=== PATIENT | female | born 1950 | race Caucasian/White ===

== ENCOUNTER → 2024-03-28 12:40 | Outpatient (REF) | payer OTHER, SELFPAY | LOC: RAD 12:40 | PROVIDERS: ATTENDING PHYSICIAN Internal Medicine Rheumatology; FAMILY PHYSICIAN Internal Medicine | DX: M81.0 Age-related osteoporosis without current pathological fracture (principal); M85.89 Other specified disorders of bone density and structure, multiple sites; Z13.820 Encounter for screening for osteoporosis | CPT/HCPCS: 77080; 77081 ==

== ENCOUNTER → 2024-05-30 13:14 | Outpatient (REF) | payer OTHER, SELFPAY | LOC: WDC 13:14 | PROVIDERS: ATTENDING PHYSICIAN Internal Medicine Rheumatology; FAMILY PHYSICIAN Internal Medicine | DX: Z12.31 Encounter for screening mammogram for malignant neoplasm of breast (principal); M05.9 Rheumatoid arthritis with rheumatoid factor, unspecified; M15.9 Polyosteoarthritis, unspecified | CPT/HCPCS: 73120; 73630; 77063; 77067 ==

== ENCOUNTER 2025-02-06 07:21 | Inpatient (IN) | payer OTHER, SELFPAY ==
[2025-02-06] VITALS (22 sets, daily range): BP systolic 129–161; BP diastolic 69–94; PULSE 77–84; BMI 16.8; BMI 17.2
[2025-02-06 04:08] LABS: % Basophils 0.5 % (0-2); % Eosinophils 1.3 % (0-6); % Immature Granulocytes 0.7 % (0-0.5); % Lymphocytes 10.7 % (20.5-51.1); % Monocytes 8.1 % (1.7-9.3); % Neutrophils 78.7 % (42.2-75.2); Absolute Basophils 0.1 10^3/uL (0-0.2); Absolute Eosinophils 0.2 10^3/uL (0-0.7); Absolute Immature Granulocytes 0.1 10^3/uL (0-0.05); Absolute Lymphocytes 1.3 10^3/uL (1.2-3.4); Absolute Neutrophils 9.4 10^3/uL (1.4-6.5); Hematocrit 36.8 % (37.0-47.0); Hemoglobin 12.9 g/dL (12.0-16.0); Mean Corp Hgb Conc. 35.1 g/dL (33.0-37.0); Mean Corpuscular Hgb 31.7 pg (27.0-31.0); Mean Corpuscular Volume 90.4 fL (81.0-99.0); Mean Platelet Volume 9.1 fL (7.4-10.4); Nucleated Red Blood Cells % 0 %; Platelet Count 335 10^3/uL (130-400); Red Blood Cell Count 4.07 10^6/uL (4.20-5.40); Red Cell Dist. Width 13.5 % (11.5-14.5); White Blood Cell Count 11.9 10^3/uL (4.8-10.8)
--- NOTE | 2025-02-06 04:20 | ED.GENMED ---
History of Present Illness
General
Chief Complaint: Post Operative Problem(s)
Source: patient
Exam Limitations: none
Time Seen by Provider: 02/06/25 04:20
Nursing documentation reviewed up to this point in time: agreed with
History of Present Illness
History of Present Illness:
Note:
CHIEF COMPLAINT(S)
Nausea and vomiting
HISTORY OF PRESENT ILLNESS
The patient is a 74-year-old female with a history of htn, hlp, who presents with nausea and vomiting. Symptoms began after undergoing Mohs surgery on Sunday. The patient took a dose of tramadol upon returning home from the procedure, which she
now regrets given her known sensitivity to pain medications. Since then, she has experienced persistent nausea and vomiting, which has prevented her from retaining any food or fluids. She denies abdominal pain, diarrhea, or fevers but has
experienced dizziness and dry heaving. The patients symptoms have not been alleviated by ondansetron, which she took last night. She reports difficulty sleeping and is concerned about dehydration. The patient has known vertigo but states that this
is the first time it has been accompanied by vomiting. She has tried sipping water, but it resulted in vomiting. No chest pain or shortness of breath is noted. The patient is also experiencing headaches since the procedure but has hesitated to take
acetaminophen or ibuprofen due to fear of vomiting again.
ALLERGIES
No known drug allergies.
REVIEW OF SYSTEMS
See HPI.
PHYSICAL EXAM
Nursing notes reviewed and vital signs reviewed.
General: Patient is well appearing and in no acute distress; non-toxic
Skin: Warm and dry, no rashes or lesions
Head: Normocephalic, atraumatic
Eyes: Sclera non-icteric. EOMs intact.
Cardiac: Regular rate and rhythm, no murmur
Peripheral Vascular: No lower extremity swelling or edema
Pulm: Normal respiratory effort, no wheezes, rales, rhonchi
Abdomen: No abdominal tenderness to palpation, no abdominal distention
Neuro: CN II-XII intact, no focal neurologic deficits. Sensation intact. 5 out of 5 strength in bilateral upper and lower extremities
Psychiatric: Appropriate mood and affect.
PLAN
1. Administer intravenous fluids to address dehydration.
2. Provide intravenous antiemetic for nausea.
3. Consider ibuprofen for headache management once nausea is controlled.
4. Monitor the patient closely for improvement in symptoms.
5. Evaluate the need for further imaging if symptoms persist.
DIFFERENTIAL DIAGNOSIS
The Differential Diagnosis includes, in no particular order and is not limited to:
1. Medication reaction to tramadol
2. Vertigo-related nausea
3. Dehydration secondary to vomiting
4. Gastritis
5. Gastroenteritis (unlikely due to absence of diarrhea)
6. Vestibular neuritis
7. Labyrinthitis
8. Bowel obstruction
9. Migraine-induced nausea
10. Post-surgical nausea and anxiety
CHART REVIEW
No discharge summary [facility] to review
Patient had Mohs surgery done by Dr. Coffey
MDM/DISPOSITION
74 y/o female hx of htn, hlp, comes in with nausea and vomiting for the past 3 days. She developed a headache the past day. These symptoms started after taking tramadol for pain after she had mohs surgery on her left forehead 2 days ago. Her sodium
is 123, her serum osmolality is 250, urine osmolality is 642. She will require admission for management of her acute hyponatremia. Reviewed case with ER attending. Reviewed case with hospitalist. Decision was to provide hypertonic saline
considering patient's symptoms and the fact that her sodium is less than 124. Did obtain CT scan of the head which was negative for any acute intracranial pathology. Patient referred for admission
Phy Exam
Physical Exam
Physical Exam:
see hpi
Course
Orders/Labs/Results
Orders:
Orders
02/06/25 03:53
Complete Blood Count/With Diff Urgent
Comprehensive Metabolic Panel Urgent
Serum Osmolality Urgent
Comment: ADDED
02/06/25 04:33
0.9% Sodium Chloride 500 ml [Nss] 500 ml IV BOLUS
Ketorolac [Toradol] 15 mg IV NOW STA
Prochlorperazine [Compazine] 10 mg IV NOW STA
02/06/25 04:36
Add On- LAB Urgent
Tests Added?: serum osmolality
02/06/25 05:04
Osmolality, Random Urine Urgent
Date Specimen was Collected: 02/06/25
Time Specimen was Collected: 05:00
Urinalysis Reflex To Culture Stat
Date Specimen was Collected: 02/06/25
Time Specimen was Collected: 05:00
Urine Microscopic Reflex Cult Stat
02/06/25 05:21
CT Head W/o Iv Contrast Urgent
Comment:
Reason For Exam: headache x3 days
02/06/25 06:37
Add On- LAB Stat
Tests Added?: Urine sodium
02/06/25 07:00
3% Sodium Chloride 250 ml [Sodium Chloride 3%] 250 ml IV ONCE
Flush (0.9% Sodium Chloride) [Flush (Nss)] See Dose Instructions IV PER PROTOCOL
Abnormal Lab Results
02/06/25 02/06/25
03:53 05:04
WBC 11.9 H 10^3/uL
(4.8-10.8)
RBC 4.07 L 10^6/uL
(4.20-5.40)
Hct 36.8 L %
(37.0-47.0)
MCH 31.7 H pg
(27.0-31.0)
Abs Immat Gran (auto) 0.1 H 10^3/uL
(0-0.05)
Absolute Neuts (auto) 9.4 H 10^3/uL
(1.4-6.5)
Absolute Monos (auto) 1.0 H 10^3/uL
(0.1-0.6)
Immature Gran % 0.7 H %
(0-0.5)
Neutrophils % 78.7 H %
(42.2-75.2)
Lymphocytes % 10.7 L %
(20.5-51.1)
Sodium 123 L mmol/L
(135-145)
Chloride 92 L mmol/L
(98-107)
Creatinine 0.5 L mg/dL
(0.6-1.0)
Glucose 108 H mg/dl
(70-99)
Serum Osmolality 250 L mOsm/kg
(275-300)
Urine Ketones 3+ A
(Negative)
Ur Occult Blood Reflex 3+ A
(Negative)
Urine RBC 11-15 A /HPF
(0-2)
Urine Albumin (Reflex) 1+ A
(Neg - Trace)
02/06/25 03:53
02/06/25 03:53
Vital Signs
Initial and Last Documented VS:
Initial Vital Signs
Temp Pulse Resp BP Pulse Ox
98.4 F 72 20 156/86 99
02/06/25 03:20 02/06/25 03:20 02/06/25 03:20 02/06/25 03:20 02/06/25 03:20
Last Documented Vital Signs
Temp Pulse Resp BP Pulse Ox
98.4 F 72 20 151/83 97
02/06/25 03:20 02/06/25 03:20 02/06/25 03:20 02/06/25 05:03 02/06/25 05:30
*Pulse Oximetry
SaO2: 99
Oxygen Mode of Delivery: Room air
*Critical Care Note
Total Time (30-74mins, 75-104mins- exclusive of procedures): Not Applicable
ED Attending Note
-
Portions of this chart may have been created with voice recognition software.� Occasional wrong word or��sound alike� substitutions may have occurred due to the inherent limitations of voice recognition software.
Discharge Plan
Departure
Patient Disposition: Admit
Date of Disposition: 02/06/25
Time of Disposition: 06:24
Admit to: Med/Surg
Presentation/result/management discussed w/ accepting MD/DO: Hospitalist
Patient with high blood pressure during this ER visit?: Yes
Condition: Fair
Discharge Problem:
Acute hyponatremia
Referrals:
Sofia Pedraza MD [Family Provider, Internal Medicine]
Interventions
Interventions:
*Risk Screen - Suicide Last Done: 02/06/25 03:20
*General Assessment Last Done: 02/06/25 03:20
*Neglect/Abuse Screening Last Done: 02/06/25 03:20
*ED- Fall Risk Assessment Last Done: 02/06/25 03:20
*ED COVID-19 Vaccine History Last Done: 02/06/25 03:20
ED-Skin Assessment Last Done: 02/06/25 05:10
Discharge Date and Time
Print Language: BULGARIAN
[2025-02-06 04:33] LABS: ALT (SGPT) 19 U/L (0-35); AST (SGOT) 25 U/L (14-36); Albumin 4.5 g/dl (3.5-5.0); Alkaline Phosphatase 48 U/L (38-126); Blood Urea Nitrogen 9 mg/dl (7-17); Calcium 9.2 mg/dl (8.4-10.2); Carbon Dioxide 24 mmol/L (22-30); Chloride 92 mmol/L (98-107); Glucose 108 mg/dl (70-99); Potassium 4.1 mmol/L (3.5-5.1); Sodium 123 mmol/L (135-145); Total Bilirubin 1.1 mg/dl (0.2-1.3); Total Protein 6.7 g/dl (6.3-8.2); eGFR > 60.00
[2025-02-06] MEDS: NSS 500 IV (04:50)
[2025-02-06 04:58] LABS: Osmolality Serum 250 mOsm/kg (275-300)
[2025-02-06] MEDS: TORADOL 15 MG IV (04:58)
[2025-02-06] MEDS: COMPAZINE 10 MG IV (04:58)
[2025-02-06 05:12] LABS: Urine Albumin 1+ (Neg - Trace); Urine Bilirubin Negative (Negative); Urine Character Clear (Clear); Urine Color Yellow; Urine Glucose Negative (Negative); Urine Ketone 3+ (Negative); Urine Leukocyte Negative (Negative); Urine Nitrite Negative (Negative); Urine Occult Blood 3+ (Negative); Urine Specific Gravity 1.015 (<1.030); Urine Urobilinogen Negative (Neg - 1+)
[2025-02-06 05:17] LABS: Osmolality Urine 642 mOsm/kg (300-900)
[2025-02-06 05:32] LABS: Urine White Cell None Seen /HPF (0-5)
--- NOTE | 2025-02-06 07:00 | HPS.HSE ---
Family Physician
-
Family Physician: Sofia Pedraza
Chief Complaint
-
Nausea vomiting
History of Present Illness
This is a 74-year-old female with past medical history of rheumatoid arthritis on Plaquenil, hyperlipidemia and hypertension presenting to the emergency department with nausea vomiting and headache that started immediately after Mohs surgery.
Patient had a Mohs surgery on Sunday the . The procedure was quite protracted requiring multiple surgeries. Ultimately patient was discharged to home on tramadol and doxycycline. She stated that upon getting home she started taking the
doxycycline and tramadol for discomfort. She immediately developed nausea and vomiting. She says she has not had p.o. since Sunday evening. She attempted some stools but immediately vomited it. She has been sipping just water. She has been
taking her usual medications which include lisinopril Plaquenil and pravastatin. She denies having any diarrhea. Vomiting was nonbloody and nonbilious. She denies abdominal pain. After approximately 2 days she started having a headache which she
says is localized to the area of the surgery. She denies any numbness or tingling. She denies any double vision or blurry vision. She denies any weakness. Patient denies any neck tenderness or pain. She denies having any fevers or chills.
On arrival in the emergency department the patient was afebrile, blood pressure was 150/83 with a pulse of 72 and she was satting 97% on room air.
CT of the head shows no acute interval changes. She had a white count of 11.9 but otherwise CBC was unremarkable. Electrolytes were notable for a sodium of 123, BUN and creatinine were normal. Glucose was 108.
Serum osmolality was 250. She had a urine awesome's of 640.
Medical History
Past Medical History
Past Medical History: Reports HTN, Hypercholesterolemia and Other (Rheumatoid arthritis, rosacea)
Additional Past Medical History:
Retinal detachment s/p repair
Past Surgical History: Reports Orthopedic (Arthroscopic knee surgery)
Social History
Tobacco: Non-smoker
Alcohol: None
Drug: None
Living: With Family
Family History
Family History: Not pertinent
Allergies / Home Medications
Allergies reflects when Allergies were last updated in [employer].
Home Medications with original date entered in [employer]
Allergy/Medication List:
Allergies
Allergy/AdvReac Type Severity Reaction Status Date / Time
sulfur (From Sulfur-8) Allergy bothers Verified 02/06/25 03:20
eyes
Lisinopril 10 mg tablet, 10 mg p.o. daily
Plaquenil 200 mg tablet, 300 mg p.o. daily
Pravastatin 20 mg tablet, 20 mg p.o. at bedtime
Doxycycline 100 mg tablet, 100 mg p.o. twice daily
Review of Systems
-
History Source: Patient
Constitutional: Reports No Symptoms
EENT: Reports No Symptoms
Respiratory: Reports No Symptoms
Cardiac: Reports No Symptoms
Abdomen/GI: Reports Nausea and Vomiting
: Reports No Symptoms
Musculoskeletal: Reports No Symptoms
Skin: Reports No Symptoms
Neurological: Reports Headache
Endocrine: Reports No Symptoms
Hematologic/Lymphatic: Reports No Symptoms
Psych: Reports No Symptoms
Physical Exam
Vital Signs
Vital Signs
Temp Pulse Resp BP Pulse Ox
98.4 F 72 20 151/83 97
02/06/25 03:20 02/06/25 03:20 02/06/25 03:20 02/06/25 05:03 02/06/25 05:30
Physical Exam
General: Pain and Poor Appetite
HEENT: NormoCephalic, Anicteric, PERRLA and Other (dressing covering the left forehead. Generalized erythema of the cheeks bilaterally as well as chin)
Respiratory: Clear
Cardiac: S1/S2 and Regular Rhythm
Breast: Deferred by me
GI: Soft, Non Tender, Non Distended and Normal Bowel Sounds
Rectal: Deferred by Provider
Genito-urinary: Deferred by me
Musculoskeletal: No Clubbing, No Cyanosis and No Edema
Skin: Warm
Neuro: AO x 3 and Nonfocal/grossly intact
Hematologic/Lymphatic: No Lymphadenopathy
Psych: Calm
Laboratory Results
-
02/06/25 03:53
02/06/25 03:53
Laboratory Results
Total Bilirubin 1.1 mg/dl (0.2-1.3) 02/06/25 03:53
AST 25 U/L (14-36) 02/06/25 03:53
ALT 19 U/L (0-35) 02/06/25 03:53
Alkaline Phosphatase 48 U/L (38-126) 02/06/25 03:53
Data Reviewed
-
CT Scan: Report Reviewed by me
Lab Data: Labs Reviewed by me
Old Records: Reviewed
Impression/Plan
-
IMPRESSION:
74-year-old female with past medical history of hypertension, hyperlipidemia and RA who presents to the emergency department postop day #2 status post Mohs surgery of the left forehead with nausea vomiting and headache and was found to be
hyponatremic to 123. Patient has not been able to eat or drink for the last 2 to 3 days due to nausea vomiting and preparation for surgery. She has a sodium of 123, labs are otherwise unremarkable. No significant abdominal findings on examination
or labs. CT of the head was negative. Urine studies been sent.
PLAN:
Hyponatremia -suspect hypovolemic hyponatremia however given the sodium of 123 and headache is concern for development of worsening symptoms if patient becomes more hyponatremic.
- Admit to telemetry
- Check TSH and random cortisol
- Urine osm is quite elevated at 624 despite serum awesome of 250. Urine sodium pending
- no offending medications, no hx of hyponatrema, last Na in September was 123.
- hx suggestive of dehydration but out of proportion to hyponatremia
- will start hypertonic saline 30ml/hr x 250 ml, repeat Na q 4 hours
- check orthostatic vs, if orthostatic will give NS boluses
- nephrology consultation
N/V/headache - CT head unremarkable. Moh's surgery may play a role in the headache
- pain control w/ tylenol, low dose opioids
- compazine prn n/v
- fluids as above
- adat to regular as tolerated
HTN
- continue lisinopril unless SBP < 110
HLD
- continue pravastatin
DVT PPX - lovenox sq corrected for weight
Code status - Full Code
[2025-02-06 08:10] LABS: Urine Sodium 176 mmol/L (30-90)
[2025-02-06] MEDS: SODIUM CHLORIDE 3% 250 IV (08:25)
--- NOTE | 2025-02-06 10:52 | W.CON.NEPH ---
Consultation
-
Date/Time Consultation Requested: 02/06/25 0715
Date/Time Consultation Performed: 02/06/25 1030
Requesting Provider: Todd Mcconnell
Performing Provider: Maria Teresa Rendon
Reason for Consultation: hypoantremia
Medical History
-
Chief Complaint: n/v
History of Present Illness:
74-year-old female with past medical history of rheumatoid arthritis on Plaquenil, hyperlipidemia on statin, hypertension on lisinopril and hypothyroidism on LT4 presenting to the emergency department on 02/06 with nausea vomiting and headache that
started immediately after Mohs surgery 02/04.
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 She was given Tramadol and Doxy which she could not toelrate at home with ongoing N/V. She also in lot of pain from surgery along with PRUITT. She could not eat any
thing for few days now and only was sipping water. She denies having any diarrhea or abd pain. She has poor vision to begin with from prior retinal detachment and she no longer drives. She also has chr dizziness too which is worse since surgery. She
denies having any fevers or chills. no CP or sob.
In Er CT of the head shows no acute interval changes. sodium low at 123, with no prior history of hyponatremia.
Serum osmolality was 250. She had a urine osm of 640. She was started on HTS and nephrology consulted.
Past Medical History
HTN, Hypercholesterolemia, Rheumatoid arthritis, rosacea, hypothroidism
Past Surgical History: Other (Retinal detachment s/p repair, arthroscopic knee surgery)
Social History
Tobacco: Non-Smoker
Alcohol: None
Living: With Family
Family History
Family History: Not Pertinent
Allergies / Home Medications
Allergy/AdvReac Type Severity Reaction Status Date / Time
sulfur (From Sulfur-8) Allergy bothers Verified 02/06/25 03:20
eyes
�Medication �Instructions �Recorded �Confirmed �Type
hydroxychloroquine 200 mg tablet 200 mg PO HS Rheumatoid arthritis 02/06/25 02/06/25 History
(Plaquenil)
levothyroxine 25 mcg tablet 25 mcg PO HS Thyroid 02/06/25 02/06/25 History
lisinopril 10 mg tablet 10 mg PO DAILY Blood Pressure 02/06/25 02/06/25 History
pravastatin 20 mg tablet 20 mg PO HS High Cholesterol 02/06/25 02/06/25 History
Review of Systems
-
All other systems: Negative unless noted
Physical Exam
Vital Signs
Vital Signs
Temp Pulse Resp BP Pulse Ox
98.4 F 76 20 152/83 97
02/06/25 03:20 02/06/25 08:49 02/06/25 08:49 02/06/25 08:49 02/06/25 08:49
Lab Results
WBC 11.9 10^3/uL (4.8-10.8) H 02/06/25 03:53
RBC 4.07 10^6/uL (4.20-5.40) L 02/06/25 03:53
Hgb 12.9 g/dL (12.0-16.0) 02/06/25 03:53
Hct 36.8 % (37.0-47.0) L 02/06/25 03:53
Plt Count 335 10^3/uL (130-400) 02/06/25 03:53
Sodium 123 mmol/L (135-145) L 02/06/25 03:53
Potassium 4.1 mmol/L (3.5-5.1) 02/06/25 03:53
Chloride 92 mmol/L (98-107) L 02/06/25 03:53
Carbon Dioxide 24 mmol/L (22-30) 02/06/25 03:53
BUN 9 mg/dl (7-17) 02/06/25 03:53
Creatinine 0.5 mg/dL (0.6-1.0) L 02/06/25 03:53
eGFR > 60.00 02/06/25 03:53
Glucose 108 mg/dl (70-99) H 02/06/25 03:53
Calcium 9.2 mg/dl (8.4-10.2) 02/06/25 03:53
Albumin 4.5 g/dl (3.5-5.0) 02/06/25 03:53
Physical Exam
General: Awake, Alert, Oriented, AOx3, No Distress and Nontoxic
HEENT: Ear/Nose Intact, Facial Symmetry, Neck Supple and Other (left eyebrow, left forehead in bandage, able to open left eye )
Respiratory: Clear, Normal Excursion and Nonlabored Respirations
Cardiac: S1/S2 and Regular Rate/Rhythm
Breast: Deferred by me
Abdomen: Soft, Nontender and Nondistended
Musculoskeletal: No Cyanosis and No Edema
Skin: No Rash
Neuro: Nonfocal/Grossly Intact
Psych: Mood/afflect pleasant, Insight/judgement good and Appropriate
Data Reviewed
-
Labs: Labs Reviewed by me, Discussed with Patient and Discussed with Family
Assessment/Plan
-
IMP:
Hyponatremia
N/V/headache - post Moh's surgery 02/04
HTN
HLD
Hypothyroidism
Plan:
A/w n/v, PRUITT post MOhs surg left eyebrow
hyponatremia-no prior history
suspect SIADH with above
she was started on HTS for possible symptoms
U osmo 642, U na 176 ?sample post NS
TSH and cortisol were ok
repeat labs now
FR 40 ounces/day, encourage solute intake once n/v is better
pain control
BP stable
d/w pt and son at bedside
[2025-02-06 13:09] LABS: Blood Urea Nitrogen 6 mg/dl (7-17); Calcium 8.1 mg/dl (8.4-10.2); Carbon Dioxide 22 mmol/L (22-30); Chloride 119 mmol/L (98-107); Estimated Creatinine Clearance 59 ml/min; Glucose 89 mg/dl (70-99); Potassium 3.8 mmol/L (3.5-5.1); Sodium 145 mmol/L (135-145); eGFR > 60.00
[2025-02-06 13:24] LABS: Cortisol, Random 15.3 ug/dl; TSH 4.27 uIU/ml (0.47-4.68)
[2025-02-06] MEDS: ZESTRIL 10 MG PO (13:32)
--- NOTE | 2025-02-06 14:15 | PTCARENOTE ---
Received Pt form ED. AAOx3. Denies any pain or discomfort. VVS are WNL. Oriented to unit. Plan of care is ongoing.
[2025-02-06 14:18] LABS: Blood Urea Nitrogen 7 mg/dl (7-17); Carbon Dioxide 23 mmol/L (22-30); Chloride 105 mmol/L (98-107); Estimated Creatinine Clearance 59 ml/min; Glucose 90 mg/dl (70-99); Potassium 3.8 mmol/L (3.5-5.1); Sodium 133 mmol/L (135-145); eGFR > 60.00
--- NOTE | 2025-02-06 14:34 | W.PN.UPDATE ---
Update Note
Progress Note Update
Recent Mohs surgery as an outpatient on the . Last p.o. intake was the night prior which was Sunday. Since then has been sipping on water however has not been able to tolerate p.o. intake due to nausea vomiting.
S/p 3% normal saline. Sodium went from 123-145. Immediate release stopped 3% obtain stat repeat BMP.
Repeat BMP demonstrated sodium of 133. Will not resume 3% hypertonic saline. Will need to start fluid restriction of 48 ounces.
Nephrology consulted and following
--- NOTE | 2025-02-06 14:44 | EDRN ---
this RN called the receiving unit and notified them that paper report was going to be tubed up
--- NOTE | 2025-02-06 15:30 | CM ---
CM reviewed chart and met with pt bedside in ED. Lives with , 1 story home, no SILVA.
Independent in ADLs, personal care and ambulation at baseline, no DME.
Denies financial insecurities.
No hx VN/SNF
PCP: Sofia Pedraza
Pharmacy: [facility]
Discharge plan: Anticipate home, no needs pending ongoing medical evaluation
--- NOTE | 2025-02-06 17:40 | PTCARENOTE ---
Pt walked to a bathroom. HR was in 160's,sustaining for about 5-10 minutes. Pt complained of palpitations. On telemetry was in AFIB . EKG obtained. Pt converted back to SR with HR around 80's. MD was notified. Pt was asked to not to walk to a
bathroom and instead a commode was provided. ten minutes later, patient's HR was in 140's, sustaining. Telemetry showing Afib. Pt stated ' i just turned in my bed'. Pt felt palpitations during that time. Pt converted back to SR with HR in 80's. New
orders were noted by and administered as prescribed.
[2025-02-06] MEDS: LOPRESSOR 25 MG PO (17:50)
[2025-02-06] MEDS: LOVENOX 30 MG SC (19:24)
[2025-02-06] MEDS: PLAQUENIL 200 MG PO (21:26)
[2025-02-06] MEDS: HYDROPHOR 1 APPLIC TOPICAL (21:26)
[2025-02-06] MEDS: PRAVACHOL 20 MG PO (21:27)
--- NOTE | 2025-02-06 22:38 | W.PN.UPDATE ---
Update Note
Progress Note Update
-Patient is tachycardia with hr 140s, bp 139/94, afebrile, SPO2 98%. Denies sob or chest pain. EKG done.
-Stat cbc, bmp, mag
-2.5 mg of IV Lopressor given.
[2025-02-06] MEDS: LOPRESSOR 2.5 MG IV (22:44)
[2025-02-06 23:43] LABS: Hematocrit 37.7 % (37.0-47.0); Hemoglobin 13.7 g/dL (12.0-16.0); Mean Corp Hgb Conc. 36.3 g/dL (33.0-37.0); Mean Corpuscular Hgb 31.8 pg (27.0-31.0); Mean Corpuscular Volume 87.5 fL (81.0-99.0); Mean Platelet Volume 8.9 fL (7.4-10.4); Platelet Count 358 10^3/uL (130-400); Red Blood Cell Count 4.31 10^6/uL (4.20-5.40); Red Cell Dist. Width 13.7 % (11.5-14.5)
--- NOTE | 2025-02-06 23:55 | PTCARENOTE ---
Patient HR went into 140s sustaining. EKG in chart. No complaint of pain/sob. Notified OUTSOLE TACKER- IV Lopressor and labs taken. Pt went back into NSR around 2355
[2025-02-07] VITALS (7 sets, daily range): BP systolic 117–157; BP diastolic 64–87; PULSE 62–76; BMI 17.2
[2025-02-07 01:18] LABS: Blood Urea Nitrogen 9 mg/dl (7-17); Calcium 8.7 mg/dl (8.4-10.2); Carbon Dioxide 23 mmol/L (22-30); Chloride 105 mmol/L (98-107); Estimated Creatinine Clearance 56 ml/min; Glucose 99 mg/dl (70-99); Potassium 3.5 mmol/L (3.5-5.1); Sodium 132 mmol/L (135-145); eGFR > 60.00
[2025-02-07] MEDS: ZESTRIL 10 MG PO (08:00)
[2025-02-07] MEDS: HYDROPHOR 1 APPLIC TOPICAL (08:01)
--- NOTE | 2025-02-07 10:20 | CON.CAR ---
Addendum entered and electronically signed by Ronan Vargas MD 02/07/25 13:04:
I saw and examined the patient.
The COREMAKING MACHINE OPERATOR's note was reviewed and I agree with the note.
Comment: 74 y/o female with rheumatoid arthritis, hypertension, dyslipidemia, vertigo, legally blind who is here for evaluation after she had a prolonged MOHS surgery on Sunday.We are consulted since overnight, she was seen to have AFIB with RVR
and atrial flutter. She was given metoprolol. She is now in SR. She felt palps at the time.
She is in SR.
- Outpt echo
- start dilt 180 mg
- Eliquis 5 mg bid for 30 days
- outpatient 30 day monitor
- f/u scheduled for this upcoming SundayFebruary 13
Original Note:
Consultation
Consultation Request
Date/Time Consultation Requested: 02/06/25 1733
Date/Time Consultation Performed: 02/07/25 1111
Requesting Provider: Dr. Black
Performing Provider: Josey QUIÑONES for Dr. Vargas
Reason for Consultation: AFIB
Medical History
-
Chief Complaint: nausea, vomiting, weakness
History of Present Illness:
74 y/o female with rheumatoid arthritis, hypertension, dyslipidemia, vertigo, legally blind who is here for evaluation after she had a prolonged MOHS surgery on Sunday. She was sent home with pain meds and abx. She developed nausea and vomiting
and hasn't been able to keep much down. She became weak and light-headed in this setting. Also with PRUITT. On arrival, she was seen to have hyponatremia with sodium 123. We are consulted since overnight, she was seen to have AFIB with RVR and atrial
flutter. She was given metoprolol. She is now in SR. She felt palps at the time.
Past Medical History
Past Medical History: HTN, Hypercholesterolemia and Other (as above)
Social History
Tobacco: Non-Smoker
Alcohol: Occasional
Family History
Family History: CAD (dad 60, lived to 82)
Allergies / Home Medications
Allergy/AdvReac Type Severity Reaction Status Date / Time
sulfur (From Sulfur-8) Allergy bothers Verified 02/06/25 03:20
eyes
�Medication �Instructions �Recorded �Confirmed �Type
hydroxychloroquine 200 mg tablet 200 mg PO HS Rheumatoid arthritis 02/06/25 02/06/25 History
(Plaquenil)
levothyroxine 25 mcg tablet 25 mcg PO HS Thyroid 02/06/25 02/06/25 History
lisinopril 10 mg tablet 10 mg PO DAILY Blood Pressure 02/06/25 02/06/25 History
pravastatin 20 mg tablet 20 mg PO HS High Cholesterol 02/06/25 02/06/25 History
Review of Systems
-
History Source: Patient
All other systems: Negative unless noted
Abdomen/GI: Nausea and Vomiting
Neurological: Dizzy, Headache and Weakness
Physical Exam
Vital Signs
Temp Pulse Resp BP Pulse Ox
97.9 F 67 14 127/64 98
02/07/25 07:52 02/07/25 07:52 02/07/25 07:52 02/07/25 07:52 02/07/25 07:52
Lab Results
02/06/25 23:30
02/07/25 00:58
Physical Exam
General: Well Developed, Well Nourished and No Apparent Distress
HEENT: Normocephalic and Anicteric
Respiratory: Clear and Non Labored Respirations
Cardiac: Regular Rhythm
Skin: Warm and Dry
Neuro: AO x 3
Psych: Calm
Impression / Plan
-
Nausea, vomiting:
-improved
Hyponatremia: improved
-s/p 3% saline
-nephrology following
AFIB, paroxysmal, aflutter, type unknown:
-both rhythms seen on monitor and were fast. Now in SR. She received metoprolol. Recommend metoprolol XL 25 mg PO daily.
-[id number] score is 3 for hypertension, female, age. Recommend OAC. Will peña Willa. She is wary of starting new meds for this, so will revisit with her prior to potential initiation. Denies bleeding or falls, but did have recent extensive
surgery.
-echo Sunday if shes still here, otherwise as OP to be ordered in follow-up
-TSH WNL
HTN:
-stable
-monitor with medicine changes
Data Reviewed
-
EKG: Tracing Personally Visualized and interpreted (NSR [address]
CT Scan: Report Reviewed by me (No acute intracranial abnormality.)
Medical Tests (Nuc Med, Echo etc): Other (echo ordered)
Labs: Labs Reviewed by me
[2025-02-07] MEDS: TOPROL XL 25 MG PO (11:40)
[2025-02-07] MEDS: CARDIZEM CD 180 MG PO (11:48)
--- NOTE | 2025-02-07 12:12 | W.PN.NEPH.PH ---
Today's Communication / Plan
-
obseve with FR
Assessment/Plan
-
IMP:
Hyponatremia
N/V/headache - post Moh's surgery 02/04
HTN
HLD
Hypothyroidism
New Afib
Plan:
A/w n/v, PRUITT post MOhs surg left eyebrow
hyponatremia-no prior history
suspect SIADH with above, U osmo 642, high U na likely from NS
sodium stable at 132
TSH and cortisol were ok
FR 48 ounces/day, encourage solute intake
pain control
new Afib-cards consulted
BP stable
d/w pt
BMP in 3days after dc/ and f/u with PCP
-
-
Date of Service: February 07, 2025
CC / HPI / ROS
-
Chief Complaint:
hyponatremia
History of Present Illness:
sodium stable at 132
bps table, afib last evening
no fever
Review of Systems:
pain is better today
no n/v, eating well
dizziness improved too
Labs
-
Labs:
WBC 11.0 10^3/uL (4.8-10.8) H 02/06/25 23:30
RBC 4.31 10^6/uL (4.20-5.40) 02/06/25 23:30
Hgb 13.7 g/dL (12.0-16.0) 02/06/25 23:30
Hct 37.7 % (37.0-47.0) 02/06/25 23:30
Plt Count 358 10^3/uL (130-400) 02/06/25 23:30
Sodium 132 mmol/L (135-145) L 02/07/25 00:58
Potassium 3.5 mmol/L (3.5-5.1) 02/07/25 00:58
Chloride 105 mmol/L (98-107) 02/07/25 00:58
Carbon Dioxide 23 mmol/L (22-30) 02/07/25 00:58
BUN 9 mg/dl (7-17) 02/07/25 00:58
Creatinine 0.4 mg/dL (0.6-1.0) L 02/07/25 00:58
eGFR > 60.00 02/07/25 00:58
Glucose 99 mg/dl (70-99) 02/07/25 00:58
Calcium 8.7 mg/dl (8.4-10.2) 02/07/25 00:58
Albumin 4.5 g/dl (3.5-5.0) 02/06/25 03:53
Physical Exam
-
Vital Signs:
Vital Signs
Temp Pulse Resp BP Pulse Ox
98 F 74 16 157/87 99
02/07/25 11:19 02/07/25 11:19 02/07/25 11:19 02/07/25 11:19 02/07/25 11:19
Cardiovascular:: Regular rate and rhythm
Respiratory:: Bilateral: CTA
Lung Excursion:: Normal
Abdomen:: Nontender and Soft
Extremity Edema:: None: Bilateral:
Ramos Catheter: No
--- NOTE | 2025-02-07 12:22 | CM ---
Patient with Dx nausea/vomiting, hyponatremia, paroxysmal Afib. Room air. Per nurse; assist of 1 with mobility.
CM Consult: Harris checks
Pradaxa not covered by her insurance, Eliquis and Xarelto are both $150 per [facility] pharmacist.
Met with patient, son Deandre and daughter in law; patient ok with cost Eliquis or Xarelto.
Info relayed to Josey Monsalve - Willa will be ordered.
Eliquis Free Month card provided.
Offered patient home health for nurse - patient declined.
Spoke with son Deandre separately; he says daughter Ruby in [place] should be primary contact, not . Verified daughter's phone #. Spoke with Admitting with request to update contacts.
Plan home with .
--- NOTE | 2025-02-07 12:22 | W.PN.HOSP.TC ---
Today's Communication/Plan
-
Assessment / Plan
Assessment / Plan
NAD
Scleral Anicteric
MMM
No JVD
CTABL
RRR, S1/S2
Soft, NT, ND, BS+
Warm, Dry
AAOx3
Calm
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
S/p hypertonic saline
Plan fluid restriction of 40 ounces
Nephrology following
New onset atrial fibrillation�paroxysmal
[id number]
Continue telemetry
2D echocardiogram
Needed Eliquis
Toprol 25 mg long-acting
However wary about starting both agents
Cardiology consulted and following
Hyperlipidemia
Continue statin
Hypertension
Continue lisinopril
Hypothyroidism
Continue levothyroxine
Rheumatoid arthritis
Continue Plaquenil
Anticipated Discharge: 24 - 48 hours
Subjective/Interval History
-
Date of Service: February 07, 2025
Seen and examined. No new complaints.
Noted to have a burst of atrial fibrillation, multiple events. Both events noted to have a fast rate A-fib/a flutter.
Required IV Lopressor dosing.
Evaluated by cardiology at this time wary about starting new agents such as metoprolol and Eliquis.
Objective Data
-
Labs:
Laboratory Results
02/07/25
00:58
Sodium 132 L
Potassium 3.5
Chloride 105
Carbon Dioxide 23
BUN 9
Creatinine 0.4 L
Glucose 99
Calcium 8.7
Vital Signs:
Vital Signs
Temp Pulse Resp BP Pulse Ox
98 F 74 16 157/87 99
02/07/25 11:19 02/07/25 11:19 02/07/25 11:19 02/07/25 11:19 02/07/25 11:19
I&O
02/06/25 02/07/25 02/08/25
06:59 06:59 06:59
Intake Total 1200 / 1200 120 / 120
Balance 1200 / 1200 120 / 120
--- NOTE | 2025-02-07 12:35 | PTCARENOTE ---
Cardiology ALUMINUM POLISHER Josey informed that Metoprolol 25mg was given prior to stop order received. Will continue to monitor. HR 64. Plan of care ongoing.
[2025-02-07] MEDS: TYLENOL 650 MG PO (21:16)
[2025-02-07] MEDS: PRAVACHOL 20 MG PO (21:16)
[2025-02-07] MEDS: PLAQUENIL 200 MG PO (21:16)
[2025-02-07] MEDS: ELIQUIS 5 MG PO (21:16)
[2025-02-08 03:59] VITALS: BP 147/79
[2025-02-08 07:55] VITALS: BP 141/100
[2025-02-08] MEDS: CARDIZEM CD 180 MG PO (08:09)
[2025-02-08] MEDS: ZESTRIL 10 MG PO (08:09)
[2025-02-08] MEDS: ELIQUIS 5 MG PO (08:09)
[2025-02-08] MEDS: HYDROPHOR 1 APPLIC TOPICAL (08:11)
[2025-02-08 09:17] LABS: Blood Urea Nitrogen 10 mg/dl (7-17); Calcium 9.1 mg/dl (8.4-10.2); Carbon Dioxide 26 mmol/L (22-30); Chloride 102 mmol/L (98-107); Estimated Creatinine Clearance 56 ml/min; Glucose 100 mg/dl (70-99); Potassium 3.6 mmol/L (3.5-5.1); Sodium 136 mmol/L (135-145); eGFR > 60.00
--- NOTE | 2025-02-08 09:59 | W.DCSUMMARY ---
Discharge Summary
Discharge Data
Date of Admission: 02/06/25
Date of Discharge: 02/08/25
-
Pending Results: No
Hospital Course
74-year-old female with past medical history of rheumatoid arthritis on Plaquenil, hyperlipidemia and hypertension
Presented with nausea vomiting and headache. Found to have a sodium of 123 concern for symptomatic hyponatremia therefore started on hypertonic saline with improvement in sodium. Evaluated by neurology recommended to discontinue and fluid restrict
his sodium improved to 133. Believe this is related to SIADH. Continue fluid restriction of 48oz daily
Hospitalization complicated by onset burst of atrial fibrillation. 2 events neurology consulted recommended metoprolol and Eliquis 2D echocardiogram telemetry monitoring. Wary about starting new medical agents and wanted to go home
Seen and examined on the day of discharge. She is eager to go home. States feeling much better. No acute complaints.
Tele reviewed, no burst fo afib/aflutter. Denies chest pain, palpitations
NAD
Scleral Anicteric
MMM
No JVD
CTABL
RRR, S1/S2
Soft, NT, ND, BS+
Warm, Dry
AAOx3
Calm
More than 30 minutes spent in discharge including
Final examination of the patient
Summarizing hospital stay
Instructions for continuing care to all relevant caregivers
Preparation of discharge records, prescriptions, and referral forms
Total time spent (in minutes): 33mins
Discharge Plan
-
Patient Disposition: Home with Home Care
Discharge Diagnosis/Procedures: Hyponatremia
Afib
Condition: Fair
Diet: As tolerated and Restrict fluids to 48 oz
Activity: As tolerated
Others Tests: Heart monitor and echo to be ordered in follow-up cardiac visit
Activity Restrictions/Additional Instructions:
Presented with nausea vomiting and headache. Found to have a sodium of 123 concern for symptomatic hyponatremia therefore started on hypertonic saline with improvement in sodium. Evaluated by neurology recommended to discontinue and fluid restrict
his sodium improved to 133. Believe this is related to SIADH. Conitnue fluid restriction of 48oz daily
Hospitalization complicated by onset burst of atrial fibrillation. 2 events neurology consulted recommended metoprolol and Eliquis 2D echocardiogram telemetry monitoring. Wary about starting new medical agents and wanted to go home
Referrals:
Josey Monsalve CRNP [Specified Professional Personl, Cardiology] - 02/13/25 10:40 am
Sofia Pedraza MD [Family Provider, Internal Medicine]
Prescriptions:
New
diltiazem HCl 180 mg Capsule,Extended Release 24hr
180 mg PO DAILY Qty: 30 0RF
Eliquis 5 mg Tablet
5 mg PO BID Qty: 60 0RF
Continued
lisinopril 10 mg Tablet
10 mg PO DAILY
hydroxychloroquine [Plaquenil] 200 mg Tablet
200 mg PO HS
pravastatin 20 mg Tablet
20 mg PO HS
levothyroxine 25 mcg tablet
25 mcg PO HS
Discharge Orders:
Discharge Patient (As Directed); Ordered 02/08/25
Ordered By: Mandeep Black
Discharge Date and Time
Print Language: SLOVENIAN
--- NOTE | 2025-02-08 11:01 | W.PN.NEPH.PH ---
Today's Communication / Plan
-
ok for d/c
Assessment/Plan
-
IMP:
Hyponatremia
N/V/headache - post Moh's surgery 02/04
HTN
HLD
Hypothyroidism
New Afib
Plan:
A/w n/v, PRUITT post MOhs surg left eyebrow
hyponatremia-no prior history
suspect SIADH with above, U osmo 642, high U na likely from NS
sodium improved to 136
TSH and cortisol were ok
no need FR, encourage solute intake
pain control
BP stable
d/w pt
BMP in 3days after dc/ and f/u with PCP
cards f/u for new afib
-
-
Date of Service: February 08, 2025
CC / HPI / ROS
-
Chief Complaint:
hyponatremia
History of Present Illness:
sodium improved to 136
bps table,
no fever
Review of Systems:
pain is better today
no n/v, eating well
Labs
-
Labs:
WBC 11.0 10^3/uL (4.8-10.8) H 02/06/25 23:30
RBC 4.31 10^6/uL (4.20-5.40) 02/06/25 23:30
Hgb 13.7 g/dL (12.0-16.0) 02/06/25 23:30
Hct 37.7 % (37.0-47.0) 02/06/25 23:30
Plt Count 358 10^3/uL (130-400) 02/06/25 23:30
Sodium 136 mmol/L (135-145) 02/08/25 08:40
Potassium 3.6 mmol/L (3.5-5.1) 02/08/25 08:40
Chloride 102 mmol/L (98-107) 02/08/25 08:40
Carbon Dioxide 26 mmol/L (22-30) 02/08/25 08:40
BUN 10 mg/dl (7-17) 02/08/25 08:40
Creatinine 0.4 mg/dL (0.6-1.0) L 02/08/25 08:40
eGFR > 60.00 02/08/25 08:40
Glucose 100 mg/dl (70-99) H 02/08/25 08:40
Calcium 9.1 mg/dl (8.4-10.2) 02/08/25 08:40
Albumin 4.5 g/dl (3.5-5.0) 02/06/25 03:53
Physical Exam
-
Vital Signs:
Vital Signs
Temp Pulse Resp BP Pulse Ox
98.3 F 63 16 152/77 99
02/08/25 11:21 02/08/25 11:21 02/08/25 11:21 02/08/25 11:21 02/08/25 11:21
Cardiovascular:: Regular rate and rhythm
Respiratory:: Bilateral: CTA
Lung Excursion:: Normal
Abdomen:: Nontender and Soft
Extremity Edema:: None: Bilateral:
Ramos Catheter: No
--- NOTE | 2025-02-08 11:06 | CM ---
Chart reviewed and patient is for discharge to home today. No needs
Plan; Home no needs.
[2025-02-08 11:21] VITALS: BP 152/77
== END 2025-02-08 12:34 | disposition home or self-care (01) | DRG 644 ==
LOC: 4 EAST ACU 07:21
PROVIDERS: Nurse Practitioner Family; Physician Assistant; ADMITTING PHYSICIAN Internal Medicine; ATTENDING PHYSICIAN Hospitalist; CONSULT PHYSICIAN Internal Medicine; CONSULT PHYSICIAN Internal Medicine Cardiovascular Disease; EMERGENCY PHYSICIAN Student in an Organized Health Care Education/Training Program; FAMILY PHYSICIAN Internal Medicine
DX: E22.2 Syndrome of inappropriate secretion of antidiuretic hormone (principal); I48.92 Unspecified atrial flutter; I48.91 Unspecified atrial fibrillation; E86.1 Hypovolemia; I48.0 Paroxysmal atrial fibrillation; I10 Essential (primary) hypertension; M06.9 Rheumatoid arthritis, unspecified; E78.00 Pure hypercholesterolemia, unspecified; E03.9 Hypothyroidism, unspecified; Z79.899 Other long term (current) drug therapy; Z79.01 Long term (current) use of anticoagulants
CPT/HCPCS: 70450; 80048; 80053; 81003; 81015; 82533; 83735; 83930; 83935; 84300; 84443; 85025; 85027; 93005; 96361; 96374; 96375; 99285

== ENCOUNTER → 2025-02-27 13:27 | Outpatient (REF) | payer OTHER, SELFPAY | LOC: RCS 13:27 | PROVIDERS: ATTENDING PHYSICIAN Nurse Practitioner; FAMILY PHYSICIAN Internal Medicine | DX: I48.0 Paroxysmal atrial fibrillation (principal) | CPT/HCPCS: 93306 ==

== ENCOUNTER → 2025-07-14 14:02 | Outpatient (REF) | payer OTHER, SELFPAY | LOC: WDC 14:02 | PROVIDERS: ATTENDING PHYSICIAN Internal Medicine | DX: Z12.31 Encounter for screening mammogram for malignant neoplasm of breast (principal); Z12.39 Encounter for other screening for malignant neoplasm of breast | CPT/HCPCS: 77063; 77067 ==